=== PATIENT | male | born 1985 | race Caucasian/White ===

== ENCOUNTER 2021-11-27 16:16 | Inpatient (IN) | payer MEDICAID, SELFPAY ==
[2021-11-27 16:18] VITALS: BP 102/77; PULSE 97; RESP 16; TEMP 37; O2SAT 98; BMI 22.0
--- NOTE | 2021-11-27 16:45 | EDS_ITS ---
HPI History of Present Illness Chief Complaint: Substance Abuse Informant: patient Narrative Narrative: 36-year-old male requesting detox from fentanyl. Patient states that he has been using pretty regularly for The past 5 years. He got a DUI when he was 20 years old. States when his brother he started using more. He snorts his fentanyl. Patient states he is got a [id number] son that lives with his former significant other. He states that he needs to get cleaned to be with him. He states that drugs interfered with his work and he is no longer working. He denies any pending legal issues. [facility] Medical History (Updated 11/27/21 @ 17:52 by KHADAR Daigle) Alcohol abuse Anxiety Bipolar disorder Depression Hypotension Opiate addiction Smoker Substance abuse TBI (traumatic brain injury) Tuberculosis Home Medications NK 11/27/21 [History Last Taken Unknown] Allergy/AdvReac Type Severity Reaction Status Date / Time No Known Allergies Allergy Verified 11/27/21 16:20 Surgical History no surgical history no surgical history Social History Smoking Status: Current every day smoker tobacco type: cigarettes ROS ROS ED Constitutional Constitutional ED: Denies chills or weight loss Eyes Eyes: Denies change in vision or diplopia ENT ENT ED: Denies ear pain, rhinorrhea or sore throat Cardiovascular Cardiovascular: Denies chest pain, orthopnea, palpitations or racing heartbeat Respiratory/Chest Respiratory/Chest: Denies cough, dyspnea or orthopnea Gastrointestinal Gastrointestinal: Denies abdominal pain, diarrhea, nausea or vomiting Genitourinary Genitourinary ED: Denies dysuria, hematuria or urinary frequency Musculoskeletal Musculoskeletal: Denies arthralgias or myalgias Integumentary Denies abscess or rash Neurologic Neurologic: Denies headache(s) or weakness Psychiatric Psychiatric: Denies anxiety, depression, suicidal ideation or suicidal thoughts Endocrine Endocrinology: Denies polydipsia, polyphagia or polyuria Allergic/Immunologic Allergic/Immunologic ED: Denies mouth swelling, tongue swelling or urticaria EXAM Physical Exam Const Vital Signs: 11/27/21 16:18 Temperature 98.6 F Temperature Source Temporal Pulse Rate 97 Respiratory Rate 16 Blood Pressure 102/77 Blood Pressure Mean 85 Pulse Ox 98 Oxygen Delivery Method Room Air Positive well nourished and well developed General Appearance ED: well developed HEENT Reports normocephalic, head/scalp atraumatic and moist mucous membranes Eyes PERRL and EOMs intact bilaterally Neck no lymphadenopathy, supple and no JVD Resp normal respiratory effort and clear to auscultation bilaterally Cardio regular rate, regular rhythm and no murmurs GI normal to inspection, nondistended, normoactive bowel sounds and non-tender Palpation: soft Back/Spine no CVA tenderness and normal ROM Extremity normal to inspection General Extremety ED: Negative for edema General Extremity: Negative for edema Neuro oriented x3 and CN's II-XII intact bilaterally Sensorium / Orientation: alert Motor Exam: strength 5/5 throughout Psych mental status grossly normal Mood & Affect: Negative for depressed or tearful Skin no rashes or lesions noted and no wounds MDM MDM MDM Narrative Medical decision making narrative: Patient was medically cleared. Tox is positive for multiple substances except for opiates. I will speak with the hospitalist regarding admission. Lab Data Attestation: I reviewed the patient's lab results. Labs: Laboratory Results - last 24 hr 11/27/21 11/27/21 11/27/21 16:40 16:40 16:40 WBC 9.4 RBC 4.80 Hgb 14.4 Hct 41.9 MCV 87.3 MCH 30.0 MCHC 34.4 RDW Std Deviation 41.1 RDW Coeff of Chelsi 12.9 Plt Count 309 MPV 9.7 Immature Gran % (Auto) 0.200 Neut % (Auto) 49.5 Lymph % (Auto) 42.2 H [place] % (Auto) 6.5 Eos % (Auto) 1.1 Baso % (Auto) 0.5 Absolute Neuts (auto) 4.7 Absolute Lymphs (auto) 3.96 Nucleated RBC % 0 Sodium 143 Potassium 3.3 L Chloride 109 H Carbon Dioxide 26.0 Anion Gap 8 BUN 10 Creatinine 0.89 Estim Creat Clear Calc 107.77 Est GFR (MDRD) Af Amer 125 Est GFR (MDRD) Non-Af 103 BUN/Creatinine Ratio 11.2 Glucose 106 Calcium 9.0 Total Bilirubin 0.40 AST 8 L ALT 22 Alkaline Phosphatase 70 Total Protein 6.7 Albumin 3.7 Globulin 3.0 Albumin/Globulin Ratio 1.2 Urine Opiates Screen Urine Methadone Screen Ur Barbiturates Screen Ur Phencyclidine Scrn Ur Amphetamines Screen MDMA (Ecstasy) Screen U Benzodiazepines Scrn Urine Cocaine Screen U Cannabinoids Screen Ur Drug Screen Comment Ethyl Alcohol < 3.0 11/27/21 16:50 WBC RBC Hgb Hct MCV MCH MCHC RDW Std Deviation RDW Coeff of Chelsi Plt Count MPV Immature Gran % (Auto) Neut % (Auto) Lymph % (Auto) [place] % (Auto) Eos % (Auto) Baso % (Auto) Absolute Neuts (auto) Absolute Lymphs (auto) Nucleated RBC % Sodium Potassium Chloride Carbon Dioxide Anion Gap BUN Creatinine Estim Creat Clear Calc Est GFR (MDRD) Af Amer Est GFR (MDRD) Non-Af BUN/Creatinine Ratio Glucose Calcium Total Bilirubin AST ALT Alkaline Phosphatase Total Protein Albumin Globulin Albumin/Globulin Ratio Urine Opiates Screen NEGATIVE Urine Methadone Screen NEGATIVE Ur Barbiturates Screen POSITIVE H Ur Phencyclidine Scrn NEGATIVE Ur Amphetamines Screen NEGATIVE MDMA (Ecstasy) Screen POSITIVE H U Benzodiazepines Scrn POSITIVE H Urine Cocaine Screen NEGATIVE U Cannabinoids Screen POSITIVE H Ur Drug Screen Comment Ethyl Alcohol Discharge Plan Disposition Disposition: Acute Care Hospital [facility]
[2021-11-27 17:00] LABS: Absolute Lymphocyte Count 3.96 X10^3/uL (0.83-4.51); Absolute Neutrophil Count 4.7 X10^3/uL (2.0-7.7); Basophil# 0.05 X10^3/uL; Basophil% 0.5 % (0-1); Eosinophils% 1.1 % (0-5); Hematocrit 41.9 % (40-54); Hemoglobin 14.4 g/dL (13.0-16.5); Lymphocyte # 3.96 X10^3/ul (0.83-4.51); Lymphocyte % 42.2 % (19-41); Mean Corp Hgb Conc 34.4 g/dL (32-36); Mean Corpuscular Volume 87.3 fL (80-94); Mean Platelet Vol. 9.7 fl (6.2-12.0); Monocyte# 0.61 X10^3/uL; Monocyte% 6.5 % (0-10); NRBC Flagged by Analyzer 0 % (0-5); Neutrophil # 4.65 X10^3/uL (2.7-7.7); Neutrophil % 49.5 % (47-70); Platelet Count 309 K/mm3 (150-450); RBC Distribution Width CV 12.9 % (11.6-14.6); RBC Distribution Width SD 41.1 fl (35.1-43.9); White Blood Count 9.4 K/mm3 (4.4-11.0)
[2021-11-27 17:14] LABS: Amphetamine Urine VISTA NEGATIVE (<1000 ng/mL); Barbiturate Urine VISTA POSITIVE (< 200 ng/mL); Benzodiazepine Urine VISTA POSITIVE (< 200 ng/mL); Cocaine Urine VISTA NEGATIVE (< 300 ng/mL); Ecstacy Urine VISTA POSITIVE (< 500 ng/mL); Methadone Urine VISTA NEGATIVE (< 300 ng/mL); PCP Urine VISTA NEGATIVE (< 25 ng/mL); THC Urine VISTA POSITIVE (< 50 ng/mL); Vista UDS pH Range 6
[2021-11-27 17:17] LABS: BUN 10 mg/dL (7-18); Creatinine, Serum 0.89 mg/dL (0.70-1.30); Estimated Creatinine Clearance 107.77 ml/min; Glucose 106 mg/dL (74-106)
[2021-11-27 17:18] LABS: ALB/GLOB Ratio 1.2 RATIO (0.9-2.4); AST(SGOT) 8 U/L (15-37); Alanine Aminotransfer ALT/SGPT 22 U/L (16-61); Albumin, Serum 3.7 g/dL (3.2-5.0); Alkaline Phosphatase 70 U/L (45-117); Anion Gap 8 (5-15); BUN/Creat Ratio 11.2 RATIO (10-20); Chloride 109 mmol/L (98-107); EST Glomerular Filtration Rate 103 mL/min (>60); Est Glom Filt Rate - Afr Amer 125 mL/min (>60); Potassium 3.3 mmol/L (3.5-5.1); Protein, Total 6.7 g/dL (6.4-8.2); Sodium Level 143 mmol/L (136-145)
[2021-11-27 17:31] LABS: Alcohol, Blood (Medical)-Serum < 3.0 mg/dL
--- NOTE | 2021-11-27 17:48 | HP.PCM_ITS ---
Documented by User: KHADAR Daigle 11/27/21 17:57 HPI - General General Date of Admission: 11/27/21 Date of Service: 11/27/21 Chief Complaint: Opioid Detoxification HPI Narrative LAURA ROBERTSON, is a 36 M who presents with desire to detox from opioids. Patient reports that he uses approx 1 gram of fentanyl daily. patient states he needs to get clean so that he can see his child. Patient reports that he has been diagnosed with anxiety and depression in the past however he is not currently taking medications. Patient informed that his urine drug screen is negative for opiates but positive for barbiturates, MDMA, benzos, cannabinoids. Patient admits to smoking marijuana occasionally. Patient reports that he has no other medical history. [facility] Medical History (Updated 11/27/21 @ 17:52 by BROWN DaigleC) Alcohol abuse Anxiety Bipolar disorder Depression Hypotension Opiate addiction Smoker Substance abuse TBI (traumatic brain injury) Tuberculosis Home Medications NK 11/27/21 [History Last Taken Unknown] Allergy/AdvReac Type Severity Reaction Status Date / Time No Known Allergies Allergy Verified 11/27/21 16:20 Surgical History no surgical history Social History Smoking Status: Current every day smoker tobacco type: cigarettes ROS Constitutional Constitutional: Denies anorexia, change in weight, chills, fatigue, fever(s) or malaise Cardiovascular Cardiovascular: Denies chest pain, edema, orthopnea or palpitations Respiratory/Chest Respiratory/Chest: Denies cough, shortness of breath at rest, shortness of breath with exertion or wheezing Gastrointestinal Gastrointestinal: Denies abdominal pain, constipation or diarrhea Genitourinary Genitourinary: Denies dysuria Musculoskeletal Musculoskeletal: Denies back pain, extremity pain, joint pain or joint stiffness Integumentary Integumentary: Denies dry skin Neurologic Neurologic: Denies abnormal gait, abnormal speech, confusion, dizziness or focal weakness Psychiatric Psychiatric: Reports anxiety and depression Endocrine Endocrinology: Denies change in body appearance Hematologic/Lymphatic Hematologic/Lymphatic: Denies anemia Vital Signs Vital Signs Vital Signs: 11/27/21 16:18 Temperature 98.6 F Temperature Source Temporal Pulse Rate 97 Respiratory Rate 16 Blood Pressure 102/77 Blood Pressure Mean 85 Pulse Ox 98 Oxygen Delivery Method Room Air Weight Weight: 145 lb Body Mass Index (BMI) 22.0 Physical Exam Const alert, oriented x3 and no apparent distress General Appearance: cooperative HEENT normocephalic, head/scalp atraumatic and moist oral mucous membranes Eyes conjunctivae normal and no scleral icterus Neck no lymphadenopathy and supple General: trachea midline Resp normal respiratory effort, normal air movement and clear to auscultation bilaterally Cardio regular rate, regular rhythm, S1 normal heart sound, S2 normal heart sound and peripheral pulses 2+ throughout GI normal to inspection, nondistended, normoactive bowel sounds, soft to palpation and non-tender Extremity normal capillary refill and no clubbing, cyanosis or edema Skin General Skin Exam: no breakdown Lesions: no lesions Rashes: no rashes Neuro no focal motor deficits and no sensory deficits noted Speech: speech normal Psych thought process normal, cooperative and affect normal Appearance: appropriate Results Lab / Micro Data Result Diagrams: 11/27/21 16:40 11/27/21 16:40 Labs: Laboratory Results - last 24 hr 11/27/21 16:40: WBC 9.4, RBC 4.80, Hgb 14.4, Hct 41.9, MCV 87.3, MCH 30.0, MCHC 34.4, RDW Std Deviation 41.1, RDW Coeff of Chelsi 12.9, Plt Count 309, MPV 9.7, Imm ature Gran % (Auto) 0.200, Neut % (Auto) 49.5, Lymph % (Auto) 42.2 H, [place] % (Auto) 6.5, Eos % (Auto) 1.1, Baso % (Auto) 0.5, Absolute Neuts (auto) 4.7, Absolute Lymphs (auto) 3.96, Nucleated RBC % 0 11/27/21 16:40: Sodium 143, Potassium 3.3 L, Chloride 109 H, Carbon Dioxide 26.0, Anion Gap 8, BUN 10, Creatinine 0.89, Estim Creat Clear Calc 107.77, Est GFR (MDRD) Af Amer 125, Est GFR (MDRD) Non-Af 103, BUN/Creatinine Ratio 11.2, Glucose 106, Calcium 9.0, Total Bilirubin 0.40, AST 8 L, ALT 22, Alkaline Phosphatase 70, Total Protein 6.7, Albumin 3.7, Globulin 3.0, Albumin/Globulin Ratio 1.2 11/27/21 16:40: Ethyl Alcohol < 3.0 11/27/21 16:50: Urine Opiates Screen NEGATIVE, Urine Methadone Screen NEGATIVE, Ur Barbiturates Screen POSITIVE H, Ur Phencyclidine Scrn NEGATIVE, Ur Amphetamines Screen NEGATIVE, MDMA (Ecstasy) Screen POSITIVE H, U Benzodiazepines Scrn POSITIVE H, Urine Cocaine Screen NEGATIVE, U Cannabinoids Screen POSITIVE H, Ur Drug Screen Comment Assessment & Plan Assessment/Plan (1) Opiate addiction: (2) Substance abuse: PLAN: Plan 1. Opiate Detoxification -Admit to MedSurg -Suboxone taper per protocol -Supportive medications per protocol -Case management consulted for coordination with 180 for outpatient follow-up 2. Anxiety and depression -Not currently on medication regimen, reports self medicating with fentanyl and cannabis 3. Cannabis abuse -Patient states that he smokes multiple times a week but not daily 4. Tobacco abuse -Encourage cessation -Nicotine patch ordered DVT prophylaxis-no pharmacological prophylaxis indicated, encourage ambulation This patient was seen by KHADAR Daigle under the supervision of Dr. Serrato. 28 minutes spent in clinical coordination of patient's plan of care. Documented by User: Dr. Pedro Luis Serrato DO 11/27/21 19:22 HPI - General General Date of Admission: 11/27/21 [facility] Medical History (Updated 11/27/21 @ 17:52 by Karyn Norman NP-Gabirella) Alcohol abuse Anxiety Bipolar disorder Depression Hypotension Opiate addiction Smoker Substance abuse TBI (traumatic brain injury) Tuberculosis Home Medications NK 11/27/21 [History Last Taken Unknown] Allergy/AdvReac Type Severity Reaction Status Date / Time No Known Allergies Allergy Verified 11/27/21 16:20 Surgical History no surgical history Social History Smoking Status: Current every day smoker tobacco type: cigarettes Results Lab / Micro Data Result Diagrams: 11/27/21 16:40 11/27/21 16:40 Assessment & Plan Assessment/Plan (1) Opiate addiction: (2) Substance abuse: Charges/Coding Addendum Addendum: Patient was seen and examined today independently of Sindy Norman, he came to the ER today at [facility] [place] desiring services for detox from fentanyl addiction. Other than cannabis use, patient denies any other illicit drug use. Patient states he snorts his fentanyl. On examination he appeared his stated age, he appeared in no distress. Vital signs as documented. Skin warm and dry and without overt rashes. Neck without JVD, neck was supple, trachea midline, thyroid was normal. Lungs clear bilaterally, normal air movement was noted. Heart exam notable for regular rhythm, normal sounds and absence of murmurs, rubs or gallops. Abdomen unremarkable and without evidence of organomegaly, masses, or abdominal aortic enlargement. Bowel sounds are present, abdomen is not distended. Extremities nonedematous, no cyanosis was noted, no clubbing was noted. Neuro: Cranial nerves II through XII are grossly intact, no focal motor deficits were noted, sensation to light touch and pinprick intact, motor exam 5/5 throughout. Psych: Patient is alert and oriented x3, he does not appear anxious or depressed, he does not appear agitated. Labs are unremarkable except for potassium of 3.3. Patient's tox screen was positive for barbiturates, MDMA, benzodiazepines, and cannabinoids. Patient will be admitted to [place] [address] for opiate detox. Impression: #1 opiate addiction-patient desiring services for opiate detox-patient will be admitted to [place] [address], order set was entered using the opiate detox order set, patient has agreed to take Subutex, he was concerned that it would cause him to go into worse withdrawal if he took the medication, I assured him that this probably would not happen, I did tell him that he would not be able to take the Subutex until he had signs of opiate withdrawal. Patient will meet with addiction social media campaign manager. #2 polysubstance abuse-it is unknown whether the patient knows he is ingesting these other drugs (barbiturates, MDMA, benzodiazepines)-patient does admit to cannabis use. #3 migraine headaches by history-patient is on no medication for migraines at this time I have reviewed Sindy Knmargie's history and physical including her medical assessment and plan of care and with the above additions endorse it. Total clinical time spent by myself addressing the patient's medical issues, reviewing the data, and collaborating with patient's care team: 30 minutes Visit Charges Inpatient E&M: 79611 Init Hosp L2
[2021-11-27 18:11] VITALS: BP 102/77; PULSE 97; RESP 16; TEMP 37; O2SAT 98
[2021-11-27 18:34] VITALS: BMI 22.0
[2021-11-27 18:40] VITALS: BP 98/66; PULSE 62; RESP 16; TEMP 37.1; O2SAT 100
[2021-11-27] MEDS: Dicyclomine 10 MG Capsule 20 MG PO (18:46)
[2021-11-27] MEDS: hydrOXYzine PAM 25 MG Capsule 50 MG PO (18:46)
[2021-11-27] MEDS: Methocarbamol 750 MG Tablet 1500 MG PO (18:46)
[2021-11-27] MEDS: Buprenorphine HCl 2 MG TAB.SUBL SL (19:44)
[2021-11-28] MEDS: Ondansetron 8 MG Tablet PO (01:38)
[2021-11-28] MEDS: Methocarbamol 750 MG Tablet 1500 MG PO ×2 (01:38→18:04)
[2021-11-28] MEDS: hydrOXYzine PAM 25 MG Capsule 50 MG PO ×3 (01:38→18:04)
[2021-11-28] MEDS: Buprenorphine HCl 2 MG TAB.SUBL SL ×3 (03:25→20:18)
[2021-11-28 03:30] VITALS: BP 136/92; PULSE 53; RESP 16; TEMP 36.6; O2SAT 100
[2021-11-28 07:13] VITALS: BP 114/78; PULSE 65; RESP 15; TEMP 36.6; O2SAT 99
[2021-11-28] MEDS: Gabapentin 300 MG Capsule PO ×2 (07:21→20:18)
[2021-11-28 07:48] VITALS: BP 115/85; PULSE 77; RESP 16; TEMP 37.1; O2SAT 100
[2021-11-28] MEDS: Ibuprofen 600 MG Tablet PO (08:01)
--- NOTE | 2021-11-28 10:28 | PCM.PN.HOSP ---
Documented by User: KHADAR Daigle 11/28/21 10:30 Subjective Subjective Patient seen and examined. Patient sitting in bed eating breakfast no distress noted. Patient states that he had a rough night and is feeling okay this morning Objective Data Objective Data Vital Signs: Vital Signs Temp Pulse Resp BP Pulse Ox O2 Del Method 98.7 F 77 16 115/85 H 100 Room Air 11/28/21 07:48 11/28/21 07:48 11/28/21 07:48 11/28/21 07:48 11/28/21 07:48 11/28/21 07:51 Oxygen Delivery Method Room Air Weight: 144 lb 15.968 oz Body Mass Index (BMI) 22.0 Lab / Micro Data Result Diagrams: 11/27/21 16:40 11/27/21 16:40 Labs: Laboratory Results - last 24 hr 11/27/21 16:40: WBC 9.4, RBC 4.80, Hgb 14.4, Hct 41.9, MCV 87.3, MCH 30.0, MCHC 34.4, RDW Std Deviation 41.1, RDW Coeff of Chelsi 12.9, Plt Count 309, MPV 9.7, Immature Gran % (Auto) 0.200, Neut % (Auto) 49.5, Lymph % (Auto) 42.2 H, [place] % (Auto) 6.5, Eos % (Auto) 1.1, Baso % (Auto) 0.5, Absolute Neuts (auto) 4.7, Absolute Lymphs (auto) 3.96, Nucleated RBC % 0 11/27/21 16:40: Sodium 143, Potassium 3.3 L, Chloride 109 H, Carbon Dioxide 26.0, Anion Gap 8, BUN 10, Creatinine 0.89, Estim Creat Clear Calc 107.77, Est GFR (MDRD) Af Amer 125, Est GFR (MDRD) Non-Af 103, BUN/Creatinine Ratio 11.2, Glucose 106, Calcium 9.0, Total Bilirubin 0.40, AST 8 L, ALT 22, Alkaline Phosphatase 70, Total Protein 6.7, Albumin 3.7, Globulin 3.0, Albumin/Globulin Ratio 1.2 11/27/21 16:40: Ethyl Alcohol < 3.0 11/27/21 16:50: Urine Opiates Screen NEGATIVE, Urine Methadone Screen NEGATIVE, Ur Barbiturates Screen POSITIVE H, Ur Phencyclidine Scrn NEGATIVE, Ur Amphetamines Screen NEGATIVE, MDMA (Ecstasy) Screen POSITIVE H, U Benzodiazepines Scrn POSITIVE H, Urine Cocaine Screen NEGATIVE, U Cannabinoids Screen POSITIVE H, Ur Drug Screen Comment Physical Exam Const alert, oriented x3 and no apparent distress General Appearance: cooperative HEENT normocephalic, head/scalp atraumatic and moist oral mucous membranes Eyes conjunctivae normal and no scleral icterus Neck no lymphadenopathy and supple General: trachea midline Resp normal respiratory effort, normal air movement and clear to auscultation bilaterally Cardio regular rate, regular rhythm, S1 normal heart sound, S2 normal heart sound and peripheral pulses 2+ throughout GI normal to inspection, nondistended, normoactive bowel sounds, soft to palpation and non-tender Extremity normal capillary refill and no clubbing, cyanosis or edema Skin General Skin Exam: no breakdown Lesions: no lesions Rashes: no rashes Neuro no focal motor deficits and no sensory deficits noted Speech: speech normal Psych thought process normal, cooperative and affect normal Appearance: appropriate Assessment & Plan Assessment/Plan (1) Opiate addiction: (2) Substance abuse: PLAN: Plan 1. Opiate Detoxification -Suboxone taper per protocol -Supportive medications per protocol -Case management consulted for coordination with 180 for outpatient follow-up 2. Anxiety and depression -Not currently on medication regimen, reports self medicating with fentanyl and cannabis 3. Cannabis abuse -Patient states that he smokes multiple times a week but not daily 4. Tobacco abuse -Encourage cessation -Nicotine patch ordered DVT prophylaxis-no pharmacological prophylaxis indicated, encourage ambulation This patient was seen by Karyn Norman NP-C under the supervision of Dr. Serrato. 11 minutes spent in clinical coordination of patient's plan of care. Documented by User: Dr. Pedro Luis Serrato DO 11/28/21 17:36 Objective Data Lab / Micro Data Result Diagrams: 11/27/21 16:40 11/27/21 16:40 Assessment & Plan Assessment/Plan (1) Opiate addiction: (2) Substance abuse: Charges/Coding Addendum Addendum: Patient was seen and examined independently of Sindy Norman, he does complain of some nervousness today, he did take Subutex starting today. On examination he appeared in good health and spirits. Vital signs as documented. Skin warm and dry and without overt rashes. Neck without JVD, neck was supple, trachea midline, thyroid was normal. Lungs clear bilaterally, normal air movement was noted. Heart exam notable for regular rhythm, normal sounds and absence of murmurs, rubs or gallops. Abdomen unremarkable and without evidence of organomegaly, masses, or abdominal aortic enlargement. Bowel sounds are present, abdomen is not distended. Extremities nonedematous, no cyanosis was noted, no clubbing was noted. Neuro: Cranial nerves II through XII are grossly intact, no focal motor deficits were noted, sensation to light touch and pinprick intact, motor exam 5/5 throughout. Psych: Patient is alert and oriented x3, he does not appear anxious or depressed, he does not appear agitated. Impression:?#1 opiate addiction-continue present medications at this time, patient will meet with the addiction social swimming pool serviceperson today #2 polysubstance abuse-it is unknown whether the patient knows he is ingesting these other drugs (barbiturates, MDMA, benzodiazepines)-patient does admit to cannabis use. #3 migraine headaches by history-patient is on no medication for migraines at this time I have reviewed Sindy Norman's progress note including her medical assessment and plan of care and with the above additions endorse it. Total clinical time spent by myself addressing the patient's medical issues, reviewing the data, and collaborating with patient's care team: 20 minutes Visit Charges Inpatient E&M: 75059 Subs Hosp L2
[2021-11-28 11:44] VITALS: BP 115/78; PULSE 78; RESP 18; TEMP 37.1; O2SAT 97
--- NOTE | 2021-11-28 14:21 | ADDICTION ---
This rfp writer met with PT to conduct ASAM, MSE, AUDIT, DUDIT assessments and to plan for d/c. PT A+Ox4 and participated actively. All assessments completed and placed in PT's chart. PT plans to f/u with follow-up treatment services, however he wanted to discuss it with his family upon d/c. This worker offered resources based on his listed wants and needs. PT did not indicate a need for transportation post d/c from [facility].
[2021-11-28 15:56] VITALS: BP 112/77; PULSE 68; RESP 18; TEMP 37; O2SAT 97
[2021-11-28] MEDS: cloNIDine HCl 0.1 MG Tablet PO (16:07)
[2021-11-28] MEDS: traZODone 100 MG Tablet PO (20:18)
[2021-11-28 20:20] VITALS: BP 119/76; PULSE 74; RESP 16; TEMP 36.8; O2SAT 96
[2021-11-29] MEDS: Buprenorphine HCl 2 MG TAB.SUBL SL (03:24)
[2021-11-29] MEDS: hydrOXYzine PAM 25 MG Capsule 50 MG PO (06:37)
[2021-11-29] MEDS: Dicyclomine 10 MG Capsule 20 MG PO (06:37)
[2021-11-29] MEDS: Methocarbamol 750 MG Tablet 1500 MG PO (06:37)
[2021-11-29 08:27] VITALS: BP 98/59; PULSE 70; RESP 18; TEMP 36.8; O2SAT 100
[2021-11-29] MEDS: Ibuprofen 600 MG Tablet PO (08:30)
--- NOTE | 2021-11-29 10:03 | PCM.PN.HOSP ---
Subjective Subjective Patient seen and examined. Patient states that his withdrawal symptoms are improved today from yesterday however he is still having muscle aches. Objective Data Objective Data Vital Signs: Vital Signs Temp Pulse Resp BP Pulse Ox O2 Del Method 98.3 F 70 18 98/59 L 100 Room Air 11/29/21 08:27 11/29/21 08:27 11/29/21 08:27 11/29/21 08:27 11/29/21 08:27 11/29/21 08:34 Oxygen Delivery Method Room Air Weight: 144 lb 15.968 oz Body Mass Index (BMI) 22.0 Intake & Output: Intake and Output for Last 24 Hours 11/27/21 11/28/21 11/29/21 23:59 23:59 23:59 Intake Total 700 / 700 Balance 700 / 700 Lab / Micro Data Result Diagrams: 11/27/21 16:40 11/27/21 16:40 Physical Exam Const alert, oriented x3 and no apparent distress General Appearance: cooperative HEENT normocephalic, head/scalp atraumatic and moist oral mucous membranes Eyes conjunctivae normal and no scleral icterus Neck no lymphadenopathy and supple General: trachea midline Resp normal respiratory effort, normal air movement and clear to auscultation bilaterally Cardio regular rate, regular rhythm, S1 normal heart sound, S2 normal heart sound and peripheral pulses 2+ throughout GI normal to inspection, nondistended, normoactive bowel sounds, soft to palpation and non-tender Extremity normal capillary refill and no clubbing, cyanosis or edema Skin General Skin Exam: no breakdown Lesions: no lesions Rashes: no rashes Neuro no focal motor deficits and no sensory deficits noted Speech: speech normal Psych thought process normal, cooperative and affect normal Appearance: appropriate Assessment & Plan Assessment/Plan (1) Opiate addiction: (2) Substance abuse: PLAN: Plan 1. Opiate Detoxification -Suboxone taper per protocol -Supportive medications per protocol -Case management consulted for coordination with 180 for outpatient follow-up 2. Anxiety and depression -Not currently on medication regimen, reports self medicating with fentanyl and cannabis 3. Cannabis abuse -Patient states that he smokes multiple times a week but not daily 4. Tobacco abuse -Encourage cessation -Nicotine patch ordered DVT prophylaxis-no pharmacological prophylaxis indicated, encourage ambulation This patient was seen by KHADAR Daigle under the supervision of Dr. Serrato. 11 minutes spent in clinical coordination of patient's plan of care.
--- NOTE | 2021-11-29 14:04 | DS.PCM_ITS ---
Documented by User: KHADAR Daigle 11/29/21 14:08 Providers Date of Admission: 11/27/21 Date of Discharge: 11/29/21 Primary Care Physician: No Primary Care Phys Reason For Visit: OPIATE DETOX Diagnosis Discharge Diagnosis (1) Opiate addiction: Status: Acute Code(s): F11.20 - Opioid dependence, uncomplicated (2) Substance abuse: Status: Acute Code(s): F19.10 - Other psychoactive substance abuse, uncomplicated Plan 1. Opiate Detoxification -Suboxone taper per protocol -Supportive medications per protocol -Case management consulted for coordination with 180 for outpatient follow-up 2. Anxiety and depression -Not currently on medication regimen, reports self medicating with fentanyl and cannabis 3. Cannabis abuse -Patient states that he smokes multiple times a week but not daily 4. Tobacco abuse -Encourage cessation -Nicotine patch ordered DVT prophylaxis-no pharmacological prophylaxis indicated, encourage ambulation This patient was seen by KHADAR Daigle under the supervision of Dr. Serrato. 11 minutes spent in clinical coordination of patient's plan of care. Medications at Discharge Home Medications NK 11/27/21 Hospital Course Operations None Procedures None Summary of Care Provided Hospital Course: Patient is a 36-year-old male who initially presented to the ER with desire to detox from opioids. Patient was here for approximately a day and a half before he left AMA. Physical Exam Const alert, oriented x3 and no apparent distress General Appearance: cooperative HEENT normocephalic, head/scalp atraumatic and moist oral mucous membranes Eyes conjunctivae normal and no scleral icterus Neck no lymphadenopathy and supple General: trachea midline Resp normal respiratory effort, normal air movement and clear to auscultation bilaterally Cardio regular rate, regular rhythm, S1 normal heart sound, S2 normal heart sound and peripheral pulses 2+ throughout GI normal to inspection, nondistended, normoactive bowel sounds, soft to palpation and non-tender Extremity normal capillary refill and no clubbing, cyanosis or edema Skin General Skin Exam: no breakdown Lesions: no lesions Rashes: no rashes Neuro no focal motor deficits and no sensory deficits noted Speech: speech normal Psych thought process normal, cooperative and affect normal Appearance: appropriate Weight / BMI Weight Weight: 144 lb 15.968 oz Body Mass Index (BMI) 22.0 ABG / Lab / Microbiology Data Result Diagrams: 11/27/21 16:40 11/27/21 16:40 Meaningful Use Info Meaningful Use Diagnoses (Choose all that apply): None applicable Discharge Plan Admission Admit Date/Time: 11/27/21 17:38 Primary Reason for Your Visit: Opiate detox Attending Provider: Pedro Luis Serrato Primary Care Provider: Care Physician,No Primary Discharge Orders/Prescriptions Prescriptions: No Action NK Referrals / Follow Up: Care Physician,No Primary [Primary Care Provider] - Disposition Disposition (needs filled in before D/C Order can be placed): Against Medical Advice Documented by User: Dr. Pedro Luis Serrato DO 11/29/21 18:37 Providers Date of Admission: 11/27/21 Reason For Visit: OPIATE DETOX Diagnosis Discharge Diagnosis (1) Opiate addiction: Status: Acute Code(s): F11.20 - Opioid dependence, uncomplicated (2) Substance abuse: Status: Acute Code(s): F19.10 - Other psychoactive substance abuse, uncomplicated Medications at Discharge Home Medications NK 11/27/21 ABG / Lab / Microbiology Data Result Diagrams: 11/27/21 16:40 11/27/21 16:40 Discharge Plan Admission Admit Date/Time: 11/27/21 17:38 Primary Reason for Your Visit: Opiate detox Attending Provider: Pedro Luis Serrato Primary Care Provider: Care Physician,No Primary Discharge Orders/Prescriptions Prescriptions: No Action NK Referrals / Follow Up: Care Physician,No Primary [Primary Care Provider] - Disposition Disposition (needs filled in before D/C Order can be placed): Against Medical Advice Charges/Coding Addendum Addendum: Patient was seen and examined today independently of Sindy Norman, earlier this morning the patient complained of some withdrawal symptoms (muscle aches) I told him that he could ask for as needed medications. Later in the morning, the patient decided he was going to sign out AMA and he left the hospital. On examination he appeared in good health and spirits. Vital signs as documented. Skin warm and dry and without overt rashes. Neck without JVD, neck was supple, trachea midline, thyroid was normal. Lungs clear bilaterally, normal air movement was noted. Heart exam notable for regular rhythm, normal sounds and absence of murmurs, rubs or gallops. Abdomen unremarkable and without evidence of organomegaly, masses, or abdominal aortic enlargement. Bowel sounds are present, abdomen is not distended. Extremities nonedematous, no cyanosis was noted, no clubbing was noted. Neuro: Cranial nerves II through XII are grossly intact, no focal motor deficits were noted, sensation to light touch and pinpr ick intact, motor exam 5/5 throughout. Psych: Patient is alert and oriented x3, he does not appear anxious or depressed, he does not appear agitated. Impression: #1 acute opioid withdrawal #2 polysubstance abuse #3 noncompliance with medical regimen I have reviewed Sindy Norman's discharge summary including her medical assessment and plan of care and with the above additions endorse it. Total clinical time spent by myself addressing the patient's medical issues, reviewing the data, and collaborating with patient's care team: 25 minutes Visit Charges Inpatient E&M: 23932 Disch Hosp
== END 2021-11-29 11:48 | disposition left against medical advice (07) | DRG 894 ==
LOC: ED 17:49 → MS3 18:00
PROVIDERS: Admitting Provider Internal Medicine; Emergency Provider Emergency Medicine; Visit Provider Internal Medicine
DX: F11.23 Opioid dependence with withdrawal (principal); F12.10 Cannabis abuse, uncomplicated; F17.210 Nicotine dependence, cigarettes, uncomplicated; F41.9 Anxiety disorder, unspecified; F32.A Depression, unspecified; Z91.19 Patient's noncompliance with other medical treatment and regimen; Z53.29 Procedure and treatment not carried out because of patient's decision for other reasons
CPT/HCPCS: 36415; 80053; 80307; 82077; 85025; 99283; 99406